=== PATIENT | female | born 1980 | race Caucasian/White ===

== ENCOUNTER → 2016-11-09 | Outpatient (CLI) | payer OTHER ==
--- NOTE | 2016-11-09 16:07 | US ---
November 09, [address] Saul, Thank you for allowing us to see your patient regarding AMA, prior IUGR. As you know she is a 36 yea r-old 2, para 1. Her due date is 12/08/16 which is based on . Her current gestational age based on this dating is 35 weeks 6 days. She was seen previously for the same. Number of fetuses: 1 Placental location: anterior no previa presentation: cephalic Cervix: suboptimal ANN of 16.6 cm Measurements: Biparietal diameter: 89 mm 36 weeks, 0 days Head circumference: 329 mm 37 weeks, 4 days Abdominal circumference: 338 mm 37 weeks, 5 days Femur length: 73 mm 37 weeks, 2 days Humerus length: 62 mm 35 weeks, 5 days Transcerebellar diameter: 49 mm 36 weeks, 3 days Average ultrasound age: 37 weeks, 1 days Estimated weight: 3185 gm weight percentile: 87 % ANATOMY anatomy was previously assessed. Today the following structures were visualized and appeared n ormal: Supratentorial brain, posterior fossa, cisterna magna, lateral ventricles, profile, hea rt rate 133 bpm, four-chamber view, LVOT, RVOT, stomach, bladder, right and left kidneys. Impression: This is a 36 year-old, 2, para 1at 35 weeks, 6 days gestation. 1. SIUP with biometry cw ga of 35 weeks. Nl MVP. No anatomic abnormalities noted. 2. Last ultrasound there was concern for LGA and EFW today is at 87% but I do not see evidence of a t rend towards EFW >5000g and thus feel vaginal delivery attempt is warranted. Thank you for allowing me to see your patient. Approximately 10 minutes was spent with the patient a nd 10 was spent discussing her issues. Kinsey Petersen MD Perinatologist Division of Maternal Medicine Department of Obstetrics and Gynecology [facility]
--- NOTE | 2016-11-09 17:01 | US ---
OB Sonogram History: Advanced maternal age, previous gestation with IUGR, CT 12/08/2016, 35 weeks 6 days Comparison: September 14, 2016 Findings: The fetus is in vertex presentation. The head obscures the maternal cervix. The place nta is anterior and not mature. There is no placenta previa. The visualized intracranial conten ts and face appear normal. The heart is 4 chambered and has normal right and left ventricular o utflow tracks, with a rate of 1 33 bpm. Fluid is identified in the stomach and urinary bl adder. renal region looks normal. ANN = 16.6 cm. Maximum fluid pocket = 9.1 cm. BPD = 89 mm = 36 weeks 0 days Head circumference = 329 mm = 37 weeks 4 days Abdominal circumference = 338 mm = 37 weeks 5 days Femur length = 73 mm = 37 weeks 2 days Humeral length = 62 mm = 35 weeks 5 days Cerebellar width = 49 mm = 36 weeks 3 days Cisterna magna = 5.9 mm Estimated weight = 3185 g = 87 percentile (previously 90 percentile) Ultrasound CT November 29, 2016 Average gestational age by ultrasound = 37 weeks 1 day Impression: Size consistent with dates. The fetus is in the 87 percentile. Normal anatomy. This report should be read in conjunction with a consultation by Dr. Kinsey Petersen.
== END ==
LOC: FIMAGING 13:50
PROVIDERS: ATTEND Obstetrics & Gynecology
DX: O09.523 Supervision of elderly multigravida, third trimester (principal); Z3A.35 35 weeks gestation of pregnancy

== ENCOUNTER 2016-12-03 06:17 | Inpatient (IN) | payer OTHER ==
[2016-12-03] MEDS ORDERED: AMPICILLIN SODIUM 2 GM in NS 100 ML IV ONE ×2 (07:30→21:00)
[2016-12-03] MEDS ORDERED: OXYTOCIN/LR *STANDARD DOSE PROTOCOL IV SCH (07:30)
[2016-12-03] MEDS ORDERED: OXYTOCIN/RINGERS LACTATE 1,000 ML IV PRN (07:41)
[2016-12-03] MEDS ORDERED: TERBUTALINE SULFATE 1 MG/ML VIAL IV PRN (07:41)
[2016-12-03] MEDS ORDERED: LR 1,000 ML IV PRN (07:41)
[2016-12-03 08:01] LABS: % IMMATURE GRANULYOCYTES 0.3 % (0.0-1.1); ABSOLUTE IMMATURE GRANULOCYTES 0.02 10^3/uL (0.00-0.10); ADD DIFF? NO; ADD MORPH? NO; ADD SCAN? NO; ATYPICAL LYMPHOCYTE FLAG 0 (0-99); FRAGMENT RBC FLAG 0 (0-99); HEMATOCRIT 37.6 % (38.0-47.0); HEMOGLOBIN 13.5 g/dL (12.6-16.3); LEFT SHIFT FLG 0 (0-99); LIPEMIA HEMOLYSIS FLAG 90 (0-99); MEAN CELL HEMOGLOBIN 34.4 pg (27.9-34.1); MEAN CELL HEMOGLOBIN CONCENTR. 35.9 g/dL (32.4-36.7); MEAN CELL VOLUME 95.7 fL (81.5-99.8); MEAN PLATELET VOLUME 13.4 fL (8.7-11.7); PLATELET CLUMPS FLAG 10 (0-99); PLATELET COUNT 131 10^3/uL (150-400); RED BLOOD CELL COUNT 3.93 10^6/uL (4.18-5.33); RED CELL DISTRIBUTION WIDTH 12.3 % (11.5-15.2)
[2016-12-03] MEDS ORDERED: TERBUTALINE SULFATE 1 MG/ML VIAL ONE (08:33)
[2016-12-03] MEDS ORDERED: MISOPROSTOL 200 MCG TAB ONE (08:33)
[2016-12-03] MEDS ORDERED: LIDOCAINE 1% 30 ML SDV ONE (08:33)
[2016-12-03] MEDS ORDERED: AMMONIA AROMATIC 1 EACH AMP IH ONE (08:33)
--- NOTE | 2016-12-03 12:52 | OBPROG ---
OBG Progress Note Assessment/Plan: Assessment: 36 yo @ 39 2/7, IOL for macrosomia, doing well. Plan: 12/03/16 12:50 FWB reassuring. GBS positive, s/p abx. IOL-arom, increase pitocin as needed, epidural as desired. Had previously discussed with the patient that if she does not follow a normal labor curve, would move towards delivery. The patient understands and agrees to this plan. Subjective: 36 yo @ 39 2/7, IOL for macrosomia, doing well. Objective: 12/03/16 07:30 Patient ABO/Rh A POSITIVE 12/03/16 07:30 142/71 60 36.6 - SVE Dilation (cm): 3 Effacement (%): 50 Station: -2 Current Contraction Pattern: Regular FHR (bpm): 120 FHR Pattern Variability: Moderate FHR Category: 2 Membranes: AROM Amniotic Fluid Color: Clear ICD10 Worksheet Patient Problems: Problems Problem Status Onset macrosomia Acute IUGR (intrauterine growth retardation) affecting mother Acute
[2016-12-03] MEDS: AMPICILLIN SODIUM 1 GM in NS 100 ML IV SCH ×4 (13:30→22:26)
[2016-12-03] MEDS ORDERED: fentaNYL 2MCG/ML/BUP 0.1% RTU 100 ML BAG EP ONE ×2 (14:31→14:57)
[2016-12-03] MEDS ORDERED: PHENYLEPHRINE HCL 100 MCG/ML SYR ONE ×2 (14:32→14:58)
[2016-12-03] MEDS ORDERED: BUPIVACAINE 0.25% 30 ML SDV ONE ×2 (14:32→14:57)
[2016-12-03] MEDS ORDERED: fentaNYL 100 MCG/2 ML INJ ONE (14:58)
[2016-12-03] MEDS ORDERED: PHENYLEPHRINE HCL 100 MCG/ML SYR IVP PRN (17:19)
[2016-12-03] MEDS ORDERED: ONDANSETRON 4 MG/2 ML VIAL IVP PRN (17:19)
--- NOTE | 2016-12-03 17:21 | POSTANESTH ---
Post Anesthetic Evaluation Cardiovascular Status: Normal, Stable Respiratory Status: Normal, Stable, Similar to Pre-op Cond. Level of Consciousness/Mental Status: Can Participate in Eval, Alert and Oriented Pain Control: Adequate, Prn Tx Ordered Nausea/Vomiting Control: Adequate, Prn Tx Ordered Complications Possibly Related to Anesthesia: None Noted (Tolerated CSE well, stable, comfortable.)
--- NOTE | 2016-12-03 17:24 | PREANESOB ---
Obstetric Pre-Anesthesia Info - General Info Proposed Procedure: Labor and delivery with pitocin. : 2 Para: 1 WBD: 39 - Info Status: Full Term Monitors: External FHR Baseline (bpm): 130 FHR Pattern: Reassuring - Labor Status Cervical Dilation per last OB SVE: 3 Station per last OB SVE: -2 Amniotic Fluid Color: Clear Indications for Labor Analgesia: Induction of Labor, Pain Control Labor Epidural: Proposed ( macrosomia.) Anesthesia ROS: Prior labor epidural. Allergies/Adverse Reactions: Allergy/AdvReac Type Severity Reaction Status Date / Time No Known Allergies Allergy Unverified 09/07/14 22:01 Home Medications: Medication Instructions Recorded Calcium 600 + Vit D 400 Softgl 1 tab PO DAILY 05/18/15 1 tab PO DAILY 05/18/15 Ibuprofen [Motrin (*)] 600 mg PO Q6 PRN #60 tab 05/22/15 Visit Medications: Generic Name Dose Route Start Last Admin Trade Name Freq PRN Reason Stop Dose Admin Diphenhydramine HCl 25 - 50 mg 12/03/16 17:19 Benadryl Injection IVP 06/01/17 17:18 Q6HRS PRN Itching Oxytocin/Lactated Ringer's 500 mls @ 0 mls/hr 12/03/16 07:30 12/03/16 08:19 Pitocin 30 Units/Lr (Premix) IV 06/01/17 07:29 500 mls CONT KHRIS Administration Protocol Per Protocol Ampicillin Sodium 1 gm/ Sodium 100 mls @ 200 mls/hr 12/03/16 10:00 12/03/16 14:35 Chloride IV 01/02/17 09:59 Not Given Q4 KHRIS Lactated Ringer's 1,000 mls @ 0 mls/hr 12/03/16 07:41 12/03/16 08:19 Lr IV 06/01/17 07:40 1,000 mls PRN PRN Administration SEE PROTOCOL CONDITIONS Protocol Per Protocol Oxytocin/Lactated Ringer's 1,000 mls @ 150 mls/hr 12/03/16 07:41 Pitocin 20 Units/Lr (Premix) IV PRN PRN Post- bleeding Fentanyl/Bupivacaine HCl 100 mls @ 0 mls/hr 12/03/16 17:30 Fentanyl/Bupivacaine/Ns 2 Mcg/Ml 0.1% (Premix EP 12/13/16 17:29 CONT KHRIS Protocol As Directed Lactated Ringer's 500 mls @ 0 mls/hr 12/03/16 17:30 Lr IV 06/01/17 17:29 CONT KHRIS As Directed Ibuprofen 600 mg 12/03/16 07:41 Motrin PO 06/01/17 07:40 Q6HRS PRN post , inflammation Ondansetron HCl 4 mg 12/03/16 17:19 Zofran IVP 06/01/17 17:18 Q4HRS PRN Nausea/Vomiting, Can't Take PO Phenylephrine HCl 100 mcg 12/03/16 17:19 Corey-Synephrine IVP 06/01/17 17:18 .Q2M PRN Hypotension Terbutaline Sulfate 0.25 mg 12/03/16 07:41 Brethine IV 06/01/17 07:40 ONCE PRN Tachysystole Discontinued Medications Generic Name Dose Route Start Last Admin Trade Name Freq PRN Reason Stop Dose Admin Ammonia (Aromatic Spirit) Confirm 12/03/16 08:33 Ammonia Aromatic Administered 12/03/16 08:34 Dose 1 each IH .STK-MED ONE Bupivacaine HCl Confirm 12/03/16 14:32 Sensorcaine 0.25% Sdv Administered 12/03/16 14:33 Dose 30 ml .ROUTE .STK-MED ONE Bupivacaine HCl Confirm 12/03/16 14:57 Sensorcaine 0.25% Sdv Administered 12/03/16 14:58 Dose 30 ml .ROUTE .STK-MED ONE Ephedrine Sulfate Confirm 12/03/16 08:33 Ephedrine Sulfate Administered 12/03/16 08:34 Dose 50 mg .ROUTE .STK-MED ONE Fentanyl Confirm 12/03/16 14:58 Sublimaze Administered 12/03/16 14:59 Dose 100 mcg .ROUTE .STK-MED ONE Fentanyl/Bupivacaine HCl Confirm 12/03/16 14:31 Fentanyl/Bupivacaine/Ns 2 Mcg/Ml 0.1% (Premix Administered 12/03/16 14:32 Dose 100 ml EP .STK-MED ONE Fentanyl/Bupivacaine HCl Confirm 12/03/16 14:57 Fentanyl/Bupivacaine/Ns 2 Mcg/Ml 0.1% (Premix Administered 12/03/16 14:58 Dose 100 ml EP .STK-MED ONE Ampicillin Sodium 2 gm/ Sodium 110 mls @ 220 mls/hr 12/03/16 07:30 12/03/16 08:18 Chloride IV 12/03/16 07:59 110 mls ONCE ONE Administration Lidocaine HCl Confirm 12/03/16 08:33 Lidocaine Hcl 1% Administered 12/03/16 08:34 Dose 30 ml .ROUTE .STK-MED ONE Misoprostol Confirm 12/03/16 08:33 Cytotec Administered 12/03/16 08:34 Dose 800 mcg .ROUTE .STK-MED ONE Phenylephrine HCl Confirm 12/03/16 14:32 Corey-Synephrine Administered 12/03/16 14:33 Dose 1,000 mcg .ROUTE .STK-MED ONE Phenylephrine HCl Confirm 12/03/16 14:58 Corey-Synephrine Administered 12/03/16 14:59 Dose 1,000 mcg .ROUTE .STK-MED ONE Terbutaline Sulfate Confirm 12/03/16 08:33 Brethine Administered 12/03/16 08:34 Dose 1 mg .ROUTE .STK-MED ONE - Anesthesia History Response to Local Anesthetics: Normal Anesthesia & Operative History: No Prior Problems - Social History Substance Use/Abuse: Denies - Focused Exam Blood Pressure: 142/71 Heart Rate: 64 Height/Weight (Nursing): Height 162.56 cm Weight 68.946 kg Physical Exam: Within normal limits. ASA Status: II Labs: 12/03/16 07:30 Patient ABO/Rh A POSITIVE 12/03/16 07:30 - Plan Anesthetic Plan: CSE Consent Signed and on Chart: Yes Patient/Guardian Understands and Agrees to Plan: Yes
[2016-12-03] MEDS ORDERED: fentaNYL 2MCG/ML/BUP 0.1% RTU 100 ML EP SCH (17:30)
[2016-12-03] MEDS ORDERED: LR 500 ML IV SCH (17:30)
[2016-12-03] MEDS ORDERED: ACETAMINOPHEN 500 MG TAB PO ONE (20:00)
--- NOTE | 2016-12-03 20:05 | OBPROG ---
OBG Progress Note Assessment/Plan: Assessment: 36 yo @ 39 2/7, IOL for macrosomia, doing well. Plan: FWB reassuring. GBS positive, s/p abx. Pushing effectively, expect . Subjective: 36 yo @ 39 2/7, IOL for macrosomia, doing well. Objective: 12/03/16 07:30 Patient ABO/Rh A POSITIVE 12/03/16 07:30 Temp Pulse Resp BP Pulse Ox 64 142/71 H 12/03/16 17:24 12/03/16 17:24 VSS - SVE Dilation (cm): 10 Effacement (%): 100 Station: +2 Current Contraction Pattern: Regular FHR (bpm): 160 FHR Pattern Variability: Moderate FHR Category: 2 Membranes: AROM Amniotic Fluid Color: Clear ICD10 Worksheet Patient Problems: Problems Problem Status Onset macrosomia Acute IUGR (intrauterine growth retardation) affecting mother Acute
[2016-12-03] MEDS ORDERED: PROMETHAZINE HCL 25 MG/ML INJ IVP PRN (20:47)
[2016-12-03] MEDS ORDERED: SIMETHICONE 80 MG TAB CHEW PO PRN (20:47)
[2016-12-03] MEDS ORDERED: METHYLERGONOVINE MAL 0.2 MG/ML INJ ONE (20:50)
[2016-12-03] MEDS ORDERED: HEMABATE 250 MCG/1 ML AMP IM ONE (20:50)
[2016-12-03] MEDS ORDERED: CEFAZOLIN 2 GM/DEXTROSE/100 ML BAG IV ONE (20:51)
[2016-12-03] MEDS ORDERED: CITRIC ACID/SODIUM CITRATE 30 ML UDCUP ONE (20:51)
--- NOTE | 2016-12-03 20:52 | OBPROG ---
OBG Progress Note Assessment/Plan: Assessment: 36 yo @ 39 2/7, IOL for macrosomia, with arrest of descent. Plan: FWB reassuring. GBS positive, s/p abx. Pushing effectively for 2 hours, no further descent past +2 station, despite vacuum attempt, recommend delivery with the risks of bleeding, infection, damage to the bowel, bladder, uterus, ovaries, blood vessels, nerves. Patient agrees to the procedure. 12/03/16 20:48 Subjective: 36 yo @ 39 2/7, IOL for macrosomia, has been pushing for 2 hours, attempted vacuum delivery, with 3 pulls, 1 popoff, no further descent past +2 station. Objective: 12/03/16 07:30 Patient ABO/Rh A POSITIVE 12/03/16 07:30 Temp Pulse Resp BP Pulse Ox 64 142/71 H 12/03/16 17:24 12/03/16 17:24 vss - SVE Dilation (cm): 10 Effacement (%): 100 Station: +2 Current Contraction Pattern: Regular FHR (bpm): 140 FHR Pattern Variability: Moderate FHR Category: 2 Membranes: AROM Amniotic Fluid Color: Clear ICD10 Worksheet Patient Problems: Problems Problem Status Onset macrosomia Acute IUGR (intrauterine growth retardation) affecting mother Acute
[2016-12-03] MEDS ORDERED: CITRIC ACID/SODIUM CITRATE 30 ML UDCUP PO ONE (21:00)
[2016-12-03] MEDS ORDERED: ceFAZolin 2 GM/DEXTROSE 100 ML IV ONE (21:00)
[2016-12-03] MEDS ORDERED: LIDO/EPI 2% **for epidural** 20 ML SDV ONE (21:03)
[2016-12-03] MEDS ORDERED: OXYTOCIN 100 UNITS/10 ML VIAL ONE (21:30)
[2016-12-03] MEDS ORDERED: morphINE PF 5 MG/10 ML INJ ONE (21:33)
[2016-12-03 21:37] LABS: BASE EXCESS CORD -3.1 mEq/L (-13.6--3.2); PH ARTERIAL CORD BLOOD 7.29 (7.10-7.37)
[2016-12-03 21:41] LABS: PH VENOUS CORD BLOOD 7.34 (7.20-7.42)
--- NOTE | 2016-12-03 22:06 | OBPROC ---
- Delivery Pre-op Diagnoses: IUP @ 39 2/7, arrest of descent Post-op Diagnoses: IUP @ 39 2/7, arrest of descent Procedure: Primary Surgeon: Yeni Saul Anesthesia: Epidural Complications: None Findings: viable female infant, apgars 8, 9, deeply wedged in maternal pelvis, narrow pubic arch of mother EBL: 800 ml Cord Gases: Cord Gases Cord Blood PCO2 51.0 mmHg (37-60) 12/03/16 21:25 Cord Base Excess -3.1 mEq/L (-13.6--3.2) H 12/03/16 21:25 Cord ABG pH 7.29 (7.10-7.37) 12/03/16 21:25 Cord VBG pH 7.34 (7.20-7.42) 12/03/16 21:25 - [place] Info A Delivery Date: 12/03/16 Delivery Time: 21:24 Sex of Infant: Female Weight (gm): 3401.943 g Score (1 Min): 8 Score (5 Min): 9
--- NOTE | 2016-12-03 22:34 | GOP ---
DATE OF OPERATION: 12/03/2016 SURGEON: Yeni Andrade MD [employer] REPAIRER: public relations assistant. ANESTHESIA: Epidural. PREOPERATIVE DIAGNOSIS: IUP at 39 2/7 with arrest of descent. POSTOPERATIVE DIAGNOSIS: IUP at 39 2/7 with arrest of descent. PROCEDURE PERFORMED: Primary section. FINDINGS: Viable female , weight 7 pounds 8 ounces, Apgars 8 and 9. ESTIMATED BLOOD LOSS: 800 mL. INDICATIONS: The patient was a 36-year-old, G2, P1, female who presented at 38- 2/7 weeks' gestation for induction of labor for suspected macrosomia. Her last growth ultrasound had a projection of estimated weight greater than 4200 g at term and patient desired induction of labor with the awareness that she had an increased risk for delivery. The patient's labor course progressed normally. She reached completely dilated, +2 station. However, after 2 hours of pushing, had no further descent and no descent with attempted vacuum assist with 3 pulls and 1 pop-off. Recommended proceeding to delivery, which the patient agreed to. DESCRIPTION OF PROCEDURE: The patient was taken to the operating room. She was prepped and draped in normal sterile fashion in the dorsal supine position with leftward tilt. A surgical time-out was performed, verifying the patient's name, date of , planned procedure and site. A Pfannenstiel skin incision was made with a scalpel and carried through to the underlying fascia. The patient did receive 2 g of Ancef preoperatively. The fascia was incised in the midline and extended laterally. The superior aspect of the fascia was grasped with Ena clamps, the rectus muscles dissected off bluntly and with the Bovie cautery. The inferior aspect of the fascia was grasped with Ena clamps, the rectus muscles dissected off bluntly and with the Bovie cautery. The peritoneum was identified and entered in bluntly. The peritoneum was divided. The bladder blade was placed. The vesicouterine peritoneum was incised with the Metzenbaum scissors. A bladder flap was created digitally. The bladder blade was replaced. The uterus was incised with a scalpel. The uterine incision was extended laterally. The infant was deeply wedged into the maternal pelvis but was able to be delivered with some assistance from a hand from below in the vagina. The cord was clamped and cut. Cord blood was obtained. Cord gases were obtained. The was handed to the nurse practitioner. The uterus was exteriorized and cleared of all clots and debris. The uterine incision was reinspected and it was reapproximated with 0 Monocryl in a running, locked fashion in 2 layers. The uterus was returned to the abdomen. The gutters were cleared of all clots and debris. The uterine incision was reinspected and noted to be hemostatic. The subfascial spaces were inspected and noted to be hemostatic. The fascia was reapproximated with 0 Vicryl. The subcutaneous tissue was closed with 3-0 Monocryl and the skin was closed with 4-0 Vicryl. All counts were correct x2. COMPLICATIONS: None. OUTCOME: Stable, to recovery room. /[id number]/MODL MTDDella
[2016-12-04] MEDS: KETOROLAC 30 MG/1 ML SDV IVP SCH ×4 (00:59→17:53)
--- NOTE | 2016-12-04 05:26 | SOAPPROG ---
SOAP Progress Note Assessment/Plan: Assessment: 36 yo s/p ltcs for arrest of descent, pod 1. Doing well. Plan: Routine postop care. Rh +, rubella immune. Anticipate discharge on Tuesday. 12/04/16 05:24 Subjective: 36 yo s/p ltcs for arrest of descent, pod 1. Doing well. Pain well controlled, , decreased lochia. Objective: Vital Signs Temp Pulse Resp BP Pulse Ox 37.1 C 59 L 16 96/55 L 92 12/04/16 03:00 12/04/16 03:00 12/04/16 03:00 12/04/16 03:00 12/04/16 03:00 Laboratory Results 12/03/16 07:30 12/02/16 12/03/16 12/04/16 05:59 05:59 05:59 Output Total 1650 Balance -1650 Physical Exam - Physical Exam General Appearance: no apparent distress Respiratory: lungs clear Cardiac/Chest: regular rate, rhythm Abdomen: non-tender Skin: warm/dry Extremities: non-tender Neuro/Psych: oriented x 3 ICD10 Worksheet Patient Problems: Problems Problem Status Onset macrosomia Acute IUGR (intrauterine growth retardation) affecting mother Acute
[2016-12-04] MEDS: HYDROCODONE/APAP 5/325 TAB PO PRN (20:59)
[2016-12-04] MEDS: IBUPROFEN 600 MG TAB PO PRN (23:49)
[2016-12-05] MEDS: HYDROCODONE/APAP 5/325 TAB PO PRN ×5 (01:54→20:06)
[2016-12-05] MEDS: IBUPROFEN 600 MG TAB PO PRN ×3 (05:26→18:18)
[2016-12-05 07:54] VITALS: RESP 16
--- NOTE | 2016-12-05 10:09 | SOAPPROG ---
SOAP Progress Note Assessment/Plan: Assessment: 36 yo s/p ltcs for arrest of descent, pod 2. Doing well. Plan: Routine postop care. Rh +, rubella immune. Anticipate discharge today or tomorrow depending on patient preference. 12/05/16 10:08 Subjective: 36 yo s/p ltcs for arrest of descent, pod 2. Doing well. Objective: Vital Signs Temp Pulse Resp BP Pulse Ox 36.7 C 57 L 16 90/54 L 92 12/05/16 07:52 12/05/16 07:52 12/05/16 07:52 12/05/16 07:52 12/05/16 07:52 Laboratory Results 12/04/16 05:40 12/04/16 12/05/16 12/06/16 05:59 05:59 05:59 Intake Total 700 3000 Output Total 1850 3250 Balance -1150 -250 Physical Exam - Physical Exam General Appearance: no apparent distress Respiratory: lungs clear Cardiac/Chest: regular rate, rhythm Abdomen: non-tender Skin: warm/dry Extremities: non-tender Neuro/Psych: oriented x 3 ICD10 Worksheet Patient Problems: Problems Problem Status Onset macrosomia Acute IUGR (intrauterine growth retardation) affecting mother Acute
[2016-12-05] MEDS: DOCUSATE SODIUM 100 MG CAP PO PRN ×2 (12:07→20:06)
[2016-12-05 19:58] VITALS: O2SAT 95
[2016-12-06] MEDS: HYDROCODONE/APAP 5/325 TAB PO PRN ×4 (00:32→12:35)
[2016-12-06] MEDS: IBUPROFEN 600 MG TAB PO PRN ×3 (00:32→12:33)
--- NOTE | 2016-12-06 08:00 | OBGCSDC ---
General Delivery Information - General Info : 2 Para: 2 Delivery Date: 12/03/16 Delivery Physician/CNM: Yeni Saul Admission Date: 12/03/16 Labs: Patient ABO/Rh A POSITIVE 12/03/16 07:30 Hct 40.0 % (38.0-47.0) 12/04/16 05:40 - Info Infant A [place] Weight (gm): 3401.943 g Sex of Infant: Female Score (1 Min): 8 Score (5 Min): 9 Vaginal - Diagnosis Amniotic Fluid Color: Clear - Delivery IUP (Weeks): 39 Number of Prior Sections: 0 Indications for Current Section: Arrest of Descent Procedures: LTCS Intra-op Complications: None EBL: 800 ml Anesthesia: Epidural Discharge Information - Discharge Information Discharge Medications: Ibuprofen, Vitamins, Vicodin Complications: primary C/S for arrest of descent Condition: Good Instruction/Follow Up: Two Weeks Discharge Physician/CNM: Iris Guerrero Discharge Date: 12/06/16 Dictated: No
[2016-12-06] MEDS: DOCUSATE SODIUM 100 MG CAP PO PRN (08:28)
[2016-12-06 09:39] VITALS: BP 89/61; PULSE 75; TEMP 98.4
== END 2016-12-06 13:20 | disposition home or self-care (01) | DRG 766 ==
LOC: FLD 06:17 → FOB 12-04 00:12
PROVIDERS: ADMIT Obstetrics & Gynecology; ATTEND Obstetrics & Gynecology
DX: O65.4 Obstructed labor due to fetopelvic disproportion, unspecified (principal); O36.63X0 Maternal care for excessive fetal growth, third trimester, not applicable or unspecified; O66.5 Attempted application of vacuum extractor and forceps; O09.523 Supervision of elderly multigravida, third trimester; O99.824 Streptococcus B carrier state complicating childbirth; Z87.59 Personal history of other complications of pregnancy, childbirth and the puerperium; Z37.0 Single live birth; Z3A.39 39 weeks gestation of pregnancy
CPT/HCPCS: J0290; J0690; J1200; J1885; J2210; J2274; J2370; J2590; J3010; J3105